=== PATIENT | female | born 1940 | race Caucasian/White ===

== ENCOUNTER 2017-04-21 14:30 | Inpatient (IN) | payer MEDICARE ==
[~2017-04-21] VITALS: Ht 157.5 cm; Wt 69.9 kg
--- NOTE | ~2017-04-21 | ECHO ---
Transthoracic Echocardiography Report (TTE) Demographics Patient Name GILDARDO, Date of Study 04/22/2017 [place] Patient Number [id number] Visit Number [id number] Date of 1940 Room Number G6229 Gender Female Number Age 76 year(s) Referring Carly Weller MD Tool Setter Ahsan Naranjo RDCS, Physician RVT Physician Interpreting Annie Fernández MD Supervisor [place] Physician Supervising Ordering Carly Weller MD, MD/MLP Physician Nurse [employer] Delivery Driver Conclusions Contractility Score Summary Normal Left Ventricular contractility was noted. Summary The estimated left ventricular ejection fraction is 60%. Mild tricuspid regurgitation by color Doppler. There is moderate pulmonary hypertension. The pulmonary pressure (RVSP) is 49.81 mmHg. Procedure Type of Study TTE procedure:2D Echocardiogram. Procedure Date Date: 04/22/2017 Start: 10:01 AM Study Location: Inpatient Portable Technical Quality: Adequate visualization Indications:CVA. Appropriate Use Criteria: 9 Patient Status: Routine Rhythm: Atrial fibrillation BP: 160/82 mmHg M-Mode/2D Measurements LV Diastolic Dimension: 3.93 cm LV Systolic Dimension: 1.49 cm LV Septum Diastolic: 0.86 cm LV PW Diastolic: 0.9 cm LA Dimension: 3.1 cm RV Diastolic Dimension: 2.8 cm LA volume: 68 ml LVOT: 1.6 cm RV Base: 2.92 cm LVOT VTI: 24.2 cm RV Mid: 2.23 cm LV Stroke volume: 48.63 ml TAPSE: 2.78 cm TDI-S': 12.6 cm/s Doppler Measurements AV Peak Velocity: 1.47 m/s MV Peak E-Wave: 1.34 m/s AV Peak Gradient: 8.64 mmHg AV Mean Gradient: 4 mmHg MV P1/2t: 59 msec LVOT Peak Velocity: 1.29 m/s TR Velocity:2.95 m/s PV Peak Velocity: 1 m/s TR Gradient:34.81 mmHg PV Peak Gradient: 4 mmHg Estimated RAP:15 mmHg Estimated PASP: 49.81 mmHg Estimated RVSP: 50 mmHg E' Septal Velocity: 0.07 m/s E' Lateral Velocity: 0.13 m/s Findings Left Ventricle The left ventricle is normal in size . Diastolic function indeterminate due to patient's arrhythmia. Right Ventricle Normal right ventricle structure and function. Left Atrium Normal left atrial size. Right Atrium Normal right atrial size. Dilated IVC with poor inspiratory collapse consistent with elevated RA pressure. Mitral Valve Trivial mitral regurgitation by color Doppler. Mild mitral annular calcification. Aortic Valve Normal aortic valve structure and function. Tricuspid Valve Mild-moderate tricuspid regurgitation by color Doppler. There is moderate pulmonary hypertension. The pulmonary pressure (RVSP) is 49.81 mmHg. Pulmonic Valve Normal pulmonic valve structure and function. Pericardial Effusion No evidence of pericardial effusion. Miscellaneous Visualized portions of the aortic root and ascending aorta appear normal in size. Pleural Effusion No evidence of pleural effusion. Contractility Score LV regional wall motion:(0-Non visualized 1-Normal 2-Hypokinesis 3-Akinesis 4-Dyskinesis 5-Aneurysm) Signature dtt: Pradeep Valencia (cardio) dtd: 04/22/17 1001 Physician Self Edit
--- NOTE | ~2017-04-21 | DS ---
PATIENT'S NAME: RAMYA EWING [facility] AGE: 76 Y [address] ROOM: [id number] [place], [place] [address] LOCATION: GICU ADMIT DATE: 04/21/2017 Discharge Summary DISCHARGE DATE: 05/02/2017 FAMILY PHYSICIAN: Mercedes Tijerina MD ATTENDING PHYSICIAN: Jose Alejandre PRINCIPAL DIAGNOSES: 1. 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 2. New onset atrial fibrillation with rapid ventricular response. 3. Expressive aphasia and muteness. 4. Urinary tract infection sepsis. 5. Acute kidney injury. COURSE: Please refer to admitting H and P for detailed history of initial presentation. This is a 76-year-old female who presented with an acute onset right-sided weakness and loss of speech and presented to the emergency room within the tPA window and was given tPA and subsequently admitted to the ICU for observation. Further workup indicated that she had what appears to be a left MCA territory stroke, most likely of cardioembolic origin. The patient post tPA had significant resolution of her right-sided weakness; however, she still continues to have significant aphasia and muteness. The patient during her hospital stay was also noted to be in atrial fibrillation with ongoing on and off rapid ventricular responses and this was new for her. The patient was seen by the Cardiology Service and medications were adjusted for rate and rhythm control. The patient is currently oral amiodarone and for the most part in sinus rhythm and had been able to stay in the sinus rhythm for the past 3 days consistently. The patient during her hospitalization also developed acute kidney injury, and Nephrology consultation was obtained and renal function at this point is stable, her baseline creatinine is around 1.4 and today it is 1.9, making good urine output. She will have a followup renal panel in 3 days. The patient also had complications with UTI during her hospitalization and was treated with broad-spectrum antibiotics and now is discharged to go on p.o. Levaquin to finish a total of 10 days course of antibiotics for this. The patient is to continue to have PT, OT, and Speech therapy for continuing of her rehabbing process. In addition, I have just started the patient on Coumadin 5 mg p.o. daily after consultation with Dr. Alejandre, Neurology, for atrial fibrillation and stroke prophylaxis, and she is day 11 outside her acute stroke. Plan is to slowly get her INR in range in the next 5-7 days. The patient is to follow up with Cardiology as well as the family physician in the next 1-2 weeks. PHYSICAL EXAMINATION: GENERAL: The patient today is awake, alert, and oriented x3, in no acute distress. CHEST: Clear to auscultation bilaterally. HEART: S1, S2. Regular rate and rhythm. PATIENT'S NAME: RAMYA EWING [facility] AGE: 76 Y [address] [id number] [address] LOCATION: [facility] ADMIT DATE: 04/21/2017 Discharge Summary DISCHARGE DATE: 05/02/2017 FAMILY PHYSICIAN: Mercedes Tijerina MD ATTENDING PHYSICIAN: Jose Alejandre ABDOMEN: Soft, nontender, nondistended. EXTREMITIES: Without edema. NEURO: 3/5 strength on the right upper extremity. Speech is muted. DISCHARGE MEDICATIONS: 1. Amiodarone 200 mg b.i.d. for 7 days and then 200 mg daily. 2. Norvasc 5 mg p.o. daily. 3. Coumadin 5 mg p.o. daily. 4. Simvastatin 40 mg p.o. daily. 5. Levofloxacin 150 mg q.48 hours x3 doses. DISPOSITION: To [facility] for inpatient rehab. Greater than 30 minutes were spent in discharge planning and facilitating. MD NIRMALA ANGEL/taina /[id number] d: 05/03/17 0248 t: 05/05/17 1520, DISCHARGE SUMMARY
--- NOTE | ~2017-04-21 | CON ---
PATIENT'S NAME: RAMYA EWING [facility] AGE: 76 Y [address] ROOM: [id number] [place], [place] [address] LOCATION: GICU ADMIT DATE: 04/21/2017 Consultation DISCHARGE DATE: FAMILY PHYSICIAN: PHYSICIAN, UNKNOWN ATTENDING PHYSICIAN: LUIS EDUARDO LAWSON REFERRING PHYSICIAN: Edvin Carroll MD HISTORY OF PRESENT ILLNESS: A 76-year-old female patient who arrived here from [facility] after having acute onset of sudden nauseousness at lunchtime with the family with her daughter and her at 12 noon. She arrived at the emergency room and received tPA promptly at around 2:30 p.m. The patient presented with sudden onset of right facial droop and complete muteness and global aphasia right from the very beginning. She also had severe hemiplegia, which has now improved to the point where she does have some hand manager department weakness, but otherwise can elevate her arms and her legs and maintain her arm upward. The patient has been transferred here for further workup. A CT of the brain was performed at [facility] in [place] did not show any evidence of any evolving stroke. Thus, the exact onset of the visualized stroke would not include any obvious evidence of CT findings for a stroke as it was too early. We are assuming right now that the patient likely had an acute left MCA territory stroke possibly involving the insular and the radiating portions backwards into the parietal region. The patient does have some neglect of her right side and also appears to have some visual neglect. She is noted to come in atrial fibrillation. There is no known history of atrial fibrillation in this patient PAST MEDICAL HISTORY: She does have a history of hypertension and her hypertension medications have been held. History of hyperthyroidism and hyperlipidemia. SOCIAL HISTORY: She is for 53 years. She has 2 children. One daughter is here presently. She does not smoke. She does not drink alcohol. She lives in a house with her . HOME MEDICATIONS: Include: 1. Daily vitamins. 2. Citracal plus D3. 3. Fish oil supplementation/omega-3. 4. Vitamin C supplement 1000 mg tablet daily. 5. Aspirin 81 mg p.o. daily. 6. Levothyroxine 75 mcg tablet p.o. daily. 7. Simvastatin 80 mg p.o. daily. 8. Vitamin D3 1000 units p.o. daily. PATIENT'S NAME: RAMYA EWING [facility] AGE: 76 Y [address] ROOM: [id number] [place], [place] [address] LOCATION: [facility] ADMIT DATE: 04/21/2017 Consultation DISCHARGE DATE: FAMILY PHYSICIAN: PHYSICIAN, UNKNOWN ATTENDING PHYSICIAN: LUIS EDUARDO LAWSON 9. Losartan 100 mg tablet p.o. daily. 10. Ginkgo biloba 120 mg Softgel p.o. daily. FAMILY HISTORY: Noncontributory here. REVIEW OF SYSTEMS: CONSTITUTIONAL: The patient presents today with an acute onset of right hemiplegia and global aphasia, which happened suddenly along with a right facial droop. She was nauseous after she had completed eating during lunchtime with the daughter and the . She essentially has not had any verbal output since that time. The patient promptly received tPA and was transferred here to our hospital for further evaluation. She had an initial CT scan that was negative and that is appropriate as the time of onset was very acute. The patient received tPA and there is possibility that there was some improvement in her right-sided weakness since the finish of the tPA at around 2:22 p.m. She has a new onset of atrial fibrillation. She has received boluses of normal saline to try to get up the blood pressure from its baseline presentation here of 120 mmHg. GI: Recent history of vomiting and nauseousness with the onset of her stroke, but no symptoms prior to that. NEUROLOGICAL: She does not have any headaches. She appears sitting upright and comfortable, does not follow commands. PHYSICAL EXAMINATION: GENERAL: The patient is sitting up in bed. She is alert to the persons in the room. NEUROLOGICAL: She only smiles on as an imitation. She does not follow commands to close her eyes or to move her upper extremity. She does keep her right arm elevated above the bed. She moves all 4 extremities and is using her right arm, which was weaker early. She scores a 17 on the NIH stroke scale associated with left yesenia-attention, complete global aphasia with muteness, some mild limb ataxia in the right upper extremity, mild right hand drift, right facial droop, a right hemineglect, and her inability to answer any questions on command. Cranial nerves: Facial droop is noted on the right, fairly dramatic loss of the nasolabial fold. Her neck is supple on flexion and extension. Her eyes are able to pass midline and look both ways. There is no forced eye deviation. The rest of the cranial nerve exam appears to be intact. There is slight drift of the right hand, but otherwise power appears to be near fall in the right upper and lower extremities. The left power is normal in the upper and lower extremities. There appears to be some right cortical neglect. This is very subtle. The patient is not ambulatory presently. IMPRESSION: PATIENT'S NAME: RAMYA EWING [facility] AGE: 76 Y [address] ROOM: [id number] [place], [place] [address] LOCATION: [facility] ADMIT DATE: 04/21/2017 Consultation DISCHARGE DATE: FAMILY PHYSICIAN: PHYSICIAN, UNKNOWN ATTENDING PHYSICIAN: LUIS EDUARDO LAWSON This is a severe stroke in Ms. Ewing who is a 76-year-old female patient with only history of hypertension, hyperlipidemia, and hypothyroidism. There is no known history of atrial fibrillation and the patient does present with atrial fibrillation at the emergency room. She had acute onset of nauseousness with vomiting at lunch and quickly became aphasic and right hemiparetic. She has had recovery of the right upper extremity and right lower extremity power though has started to come back prior to the tPA. We have not seen any improvement post tPA with her muteness. This is clearly a likely territorial stroke and probably due to cardioembolic stroke associated with atrial fibrillation. At this point in time, we will try to maximize the blood pressure if at all possible and bolus the patient at least 2 L of fluid. Her blood pressure is currently into the 120s range and may be low due to the patient having vomiting at the beginning and may be relatively intravascularly depleted. Today, Dr. Carroll and I discussed with the family the nature of this patient's stroke and we will do further stroke workup including getting an echocardiogram, checking an MRA of the brain, and evaluating for the evidence for this right MCA stroke, which largely we believe is due to a cardioembolic stroke. The patient's vitals are stable. I discussed with the family that in the setting of a large stroke, persons can seemingly be well, but can get worse over the course of 24-48 hours. We are hopeful that this will not be the case here because her presentation for aphasia is quite severe, we cannot make any predictions for ultimate recovery at this time. The case has been discussed with Dr. Carroll and the family has been kept abreast of all the plans. MD JT MASON/taina /[id number] d: 04/21/17 2343 t: 04/30/17 1738, CONSULTATION REPORT
--- NOTE | ~2017-04-21 | CON ---
PATIENT'S NAME: GILDARDO [facility] AGE: 76 Y [address] ROOM: [place] [address] LOCATION: GICU ADMIT DATE: 04/21/2017 Consultation DISCHARGE DATE: FAMILY PHYSICIAN: Mercedes Tijerina MD ATTENDING PHYSICIAN: LUIS EDUARDO ALEJANDRE DATE OF CONSULTATION: 04/22/2017 REFERRING PHYSICIAN: Edvin Carroll MD REASON FOR CONSULTATION: Atrial fibrillation. HISTORY OF PRESENT ILLNESS: This is a 76-year-old female, who was in her usual state of health when she experienced on 04/21/2017 right-sided weakness with loss of speech. She went to the [place] [facility]. Her CT scan showed a nonhemorrhagic CVA. She received tPA as she was within the timeline. Her initial EKG in [place] showed that she had atrial fibrillation with rapid ventricular response. She does not have a history of PAF. The CVA has left her aphasic with right-sided facial drooping and weakness of the right arm and leg. PAST MEDICAL HISTORY: 1. CVA on 04/21/2017, hard of hearing. 2. Hypertension. 3. History of pneumonia. 4. Osteoporosis. 5. Skin cancer removed from the forehead in 2016. PAST SURGICAL HISTORY: Carpal tunnel release. ALLERGIES: NONE TO MEDICATION. HOME MEDICATIONS: 1. Vitamin C 1000 mg daily. 2. Aspirin 81 mg daily. 3. Citracal plus D 2 tablets b.i.d. 4. Vitamin D 3000 units every day. 5. Ginkgo biloba 120 mg daily. 6. Levothyroxine 75 mcg daily. 7. Cozaar 100 mg daily. 8. Multivitamin. 9. Centrum Silver one tablet daily. 10. [place]-3 fish oil 2 capsules daily. PATIENT'S NAME: GILDARDO [facility] AGE: 76 Y [address] ROOM: [place] [address] LOCATION: [facility] ADMIT DATE: 04/21/2017 Consultation DISCHARGE DATE: FAMILY PHYSICIAN: Mercedes Tijerina MD ATTENDING PHYSICIAN: LUIS EDUARDO ALEJANDRE 11. Simvastatin 80 mg every bedtime. FAMILY HISTORY: She is . She has a very attentive daughter, who was at her bedside. Her mother of coronary aneurysm. SOCIAL HISTORY: She has a history of smoking cigarettes one pack of cigarettes a day for 20 years. She has stopped smoking several years ago. REVIEW OF SYSTEMS: Unable to obtain verbally, although HEAD: She shakes her head no to headache. EYES: No blurred vision. EARS: No hearing loss. NOSE: No problems with epistaxis or rhinorrhea. MOUTH: She has not had any food. It is difficult to note she is able to swallow. PULMONARY: There has been no report of cough. GI: Negative for nausea, vomiting, or diarrhea. No melena or hematochezia. : No problems with urinary frequency or urgency or dribbling. MUSCULOSKELETAL: She does have problems with osteoporosis. PHYSICAL EXAMINATION: GENERAL: She is alert, has right-sided facial drooping. NECK: Soft and supple. No carotid bruits were noted. LUNGS: Lung sounds are clear. CV: Irregular showing atrial fibrillation. Rate is under control. ABDOMEN: Soft. Bowel sounds are present. EXTREMITIES: Showed no peripheral edema. No clubbing. No cyanosis. NEUROLOGIC: Her right side is weaker than her left on exam. LABORATORY DATA: EKG is showing atrial fibrillation. Her 12-lead EKG did not show any ST or T- wave changes. White count was 8.9, hemoglobin 12.3, hematocrit 37.3, platelets 175. BUN was 14, creatinine 1.1, potassium 4.2, sodium 143. Magnesium was 2. Hemoglobin A1c 5.7. Cholesterol was 157, triglycerides 136, HDL 79, LDL was 51. ASSESSMENT: 1. New onset atrial fibrillation. Duration is unknown. We will recommend checking an echocardiogram as well as a TSH and rate control. We would recommend long-term anticoagulation when it is okay with Neurology. 2. Hypertension. Blood pressure is under good control. She is to continue PATIENT'S NAME: RAMYA EWING [facility] AGE: 76 Y [address] ROOM: [place] [address] LOCATION: [facility] ADMIT DATE: 04/21/2017 Consultation DISCHARGE DATE: FAMILY PHYSICIAN: Mercedes Tijerina MD ATTENDING PHYSICIAN: LUIS EDUARDO ALEJANDRE with her current medications. 3. Dyslipidemia. Her most recent fasting lipid profile shows good control. The history of present illness, physical exam, and assessment and plan are per Dr. Valencia. We would like to thank Dr. Alejandre for allowing us to participate in the patient's care. KATIE JOEL APRN FOR MD ANAYA HOLLOWAY/mikaylal /[id number] d: 04/24/172018 t: 05/07/17 1650, CONSULTATION REPORT
--- NOTE | ~2017-04-21 | HP ---
PATIENT'S NAME: GILDARDO [facility] AGE: 76 Y [address] ROOM: [place] [address] LOCATION: [facility] ADMIT DATE: 04/21/2017 History & Physical DISCHARGE DATE: FAMILY PHYSICIAN: PHYSICIAN, UNKNOWN ATTENDING PHYSICIAN: LUIS EDUARDO ALEJANDRE DATE OF SERVICE: CHIEF COMPLAINT: Right-sided upper and lower extremity weakness and right-sided facial droop and unable to speak. HISTORY OF PRESENT ILLNESS: This is a 76-year-old female, who according to the patient's daughter and at the bedside state she is healthy. The story started today after lunch at home. Around 12:30 p.m., the daughter noticed that her mother could not speak all of a sudden and also had a right-sided facial droop and also weakness in the right arm and the right leg. This happened around 12:30 p.m. The patient was brought to the outside facility in [place] for evaluation. Over there, the patient had a CT of the head without contrast which ruled out any bleeding. Due to the presentation concerning for stroke and within tPA period, our neurologist was consulted by [place] ER physician, and the decision was made to give tPA after consulting with our neurologist. TPA was given. I was told by the ER physician over there in [place] tPA was given at 1:42 p.m. on April 21, 2017. Shortly after tPA was given, monitor also showed new-onset atrial fibrillation. EKG they did over there on admission at 1:07 p.m. showed atrial fibrillation with RVR, heart rate of 110, QRS of 86. The patient was sent over here for further care after tPA. REVIEW OF SYSTEMS: As mentioned in the history of present illness. All other systems were reviewed and were negative, except those mentioned in the history of present illness. PAST MEDICAL HISTORY: According to the family member, the patient is healthy. However, her home medication has to be addressed to get more information about her past medical history. ALLERGIES: NO KNOWN DRUG ALLERGIES ACCORDING TO THE PATIENT'S DAUGHTER AND THE PATIENT'S AT THE BEDSIDE. HOME MEDICATIONS: PATIENT'S NAME: GILDARDO [facility] AGE: 76 Y [address] ROOM: [place] [address] LOCATION: [facility] ADMIT DATE: 04/21/2017 History & Physical DISCHARGE DATE: FAMILY PHYSICIAN: PHYSICIAN, UNKNOWN ATTENDING PHYSICIAN: LUIS EDUARDO ALEJANDRE To be reconciled with the patient's pharmacy before it can be addressed. SOCIAL HISTORY: The patient was a former cigarette smoker about unknown quantity and for unknown years, but she quit about 20 years ago according to the patient's daughter at the bedside. She was never an alcohol drinker and never an illegal drug user. PAST SURGICAL HISTORY: None according to the patient's daughter at the bedside. FAMILY HISTORY: Father from complication from coronary aneurysm at old age. Mother from old age from unknown cause. PHYSICAL EXAMINATION: VITAL SIGNS: At the time of my dictation, blood pressure is currently at 105/78, heart rate is in the 95, saturation around 97% on room air, and respiration 16. GENERAL APPEARANCE: Alert, but cannot assess orientation given that the patient is aphasic. The patient does follow some commands, but not every command. The patient has difficulty comprehending due to her stroke. Not in acute distress. HEENT: Pupils are equally round and reactive to light. Extraocular muscles are intact. Anicteric sclerae. Nasal turbinates are normal bilaterally. Moist oral mucosa. NECK: No JVD. CARDIOVASCULAR: Irregularly irregular rate and rhythm. No murmur, no rubs, no gallops. Normal S1, S2. RESPIRATORY: Clear to auscultation. No rales. No rhonchi. No wheezing. No crackles. ABDOMEN: Soft, nontender, and nondistended. Bowel sounds present. No mass. EXTREMITIES: No edema in the upper or lower extremities. SKIN: No ulcer, no rash, no cyanosis. NEUROLOGIC: The patient cannot really follow all the commands. Given her stroke, the patient has difficulty comprehending. She is aphasic, cannot say any vocabulary at all. The patient is alert, but cannot assess orientation due to confusion from stroke and also from aphasia. The patient's muscle weakness is about 4/5 in the right upper and right lower extremity and about 5/5 in the left upper and left lower extremity. Sensation cannot be assessed given that the patient does not speak due to aphasia. Babinski positive on the right foot. She has hyperreflexia about +3 in the right knee. Otherwise, unremarkable. Cannot assess the vibration or proprioception given that the patient does not follow commands. Cannot assess gait due to fall risk at the moment. Cranial nerves 2 through 12, cannot make a full assessment given that PATIENT'S NAME: RAMYA EWING [facility] AGE: 76 Y [address] ROOM: [id number] [place], [place] [address] LOCATION: [facility] ADMIT DATE: 04/21/2017 History & Physical DISCHARGE DATE: FAMILY PHYSICIAN: PHYSICIAN, UNKNOWN ATTENDING PHYSICIAN: LUIS EDUARDO ALEJANDRE the patient does not follow all the commands. There is obvious facial droop on the right side of the face when she tried to open her mouth. SKIN: No ulcer, no rash, no cyanosis. LABORATORY DATA: Blood work from the outside facility: Urine drug screen was negative. INR less than 1. PTT of 23.8. UA negative for UTI. Sodium 139, potassium 4.1, chloride 108, CO2 of 23, BUN 22, glucose 144, creatinine 1.4, calcium 9.0, anion gap 12, GFR 37, proBNP 426. White blood cells 7.3, hemoglobin 13.1, hematocrit 38.2, and platelet 184. IMAGING STUDIES: EKG over there in [place] at 1:07 p.m. showed atrial fibrillation with RVR, heart rate 110, QRS 86. CT of the brain without contrast: Report is pending. But based on the verbal report given to me by the outside facility, it was negative without any hemorrhage. I have requested the report to be faxed here. ASSESSMENT AND PLAN: 1. Regarding her acute ischemic stroke: Probably cardioembolic in the setting of new-onset atrial fibrillation. The plan is ICU for post-tPA care. Blood pressure should be around 160, but no more than 180. If more than 180, should give IV labetalol per the stroke orders. We will get MRI of the brain and MRA of the brain and neck tomorrow, 24 hours after the tPA was given. If the patient has any acute change in mental status, she will get a CT of the brain without contrast stat to rule out any intracranial hemorrhage. Continue IV fluids to keep her on the ideal blood pressure range. Oxygen nasal cannula if necessary. We will watch closely to not cause volume overload. No blood work within the next 24 hours after tPA. We will check a blood work tomorrow after 24 hours to make sure kidney function is okay before going for MRI and MRA imaging of the brain and neck. I will check A1c and also a lipid panel. Check echo in the morning. We will put a Cardiology consult for management of the atrial fibrillation and long-term anticoagulation in the future. PT, OT. Speech evaluation. Fall precaution. N.p.o. for now. Further plan depends on the clinical course. I will consult Neurology. I already spoke to Dr. Alejandre, who also already saw the patient here in the ICU, PATIENT'S NAME: GILDARDO [facility] AGE: 76 Y [address] ROOM: [place] [address] LOCATION: [facility] ADMIT DATE: 04/21/2017 History & Physical DISCHARGE DATE: FAMILY PHYSICIAN: PHYSICIAN, UNKNOWN ATTENDING PHYSICIAN: LUIS EDUARDO ALEJANDRE and this is the plan I formulated with him. 2. Regarding her new-onset atrial fibrillation with rapid ventricular response: I will give her IV Lopressor p.r.n. for atrial fibrillation with rapid ventricular response control. The patient cannot swallow right now, therefore, nothing p.o. for now. Echo in the morning. Cardiology consult. Of course, right now, it is not the time for anticoagulation, but she obviously will require anticoagulation in the future to prevent future stroke. Further plan will depend on clinical course. 3. Regarding her deep vein thrombosis prophylaxis: The patient will be on compression devices. 4. Regarding her code status: After speaking to the family member about the code status, the patient does not have any power of director of medical education or legal guardian or the healthcare proxy. The patient, however, did express to her when she was able to talk before that she would not want anything aggressive to be done. She told her before all this happened that she would want anything aggressive which means that no intubation and no chest compression. Therefore, now she will be DNR/DNI, and I have already confirmed this with the patient and the patient's daughter and patient's in person here in the ICU. 5. Further plan will depend on the clinical course. Time spent in care on the day of admission 50 minutes, where 30 minutes was spent with the family member with counseling about code status and also with the plan of care and also addressing all their questions and concerns to their satisfaction. The rest of the time was spent on chart review, interviewing, and also on physial examination. Further plan will depend on clinical course. MD AMANDA FISCHER/taina /[id number] D: [id number] T: [id number] HISTORY & PHYSICAL
--- NOTE | ~2017-04-21 | CON ---
PATIENT'S NAME: GILDARDO [facility] AGE: 76 Y [address] ROOM: [place] [address] LOCATION: [facility] ADMIT DATE: 04/21/2017 Consultation DISCHARGE DATE: FAMILY PHYSICIAN: Mercedes Tijerina MD ATTENDING PHYSICIAN: LUIS EDUARDO LAWSON REFERRING PHYSICIAN: Edvin Carroll MD Consult for Dr. Carroll. HISTORY OF PRESENT ILLNESS: This 76-year-old lady, referred for rehab evaluation, was admitted on 04/21 with sudden onset of aphasia, apraxia, right facial droop, and eventually right upper and lower extremity weakness. She did receive tPA in [place] and was referred here for definitive management. She is at the present time with expressive aphasia and apraxia, especially with mouth and tongue. She is also neglecting the right temporal visual field. At the present time, she is apraxic and with expressive aphasia. Mostly she is understanding, she nods, and she can make dense eye contact; however, she is neglecting right visual field and right side of the body to right upper and lower extremity. She is unable to move right upper and lower extremity at the present time. She is showing very slight facial droop on the right side. Deep tendon reflexes are slightly brisk on the right side in comparison to the left. PHYSICAL EXAMINATION: VITAL SIGNS: Blood pressure 142/81, temperature 98.2, pulse 74, respiratory rate 20. She is 5 feet 2 inches and weighs 68.6 kg. NEUROLOGIC: No volitional movement is seen in the right upper and lower extremity at the present time. MEDICATIONS: She is on the following medications: 1. Aspirin. 2. Simvastatin. 3. Synthroid. 4. Tylenol. 5. Zofran. 6. NaCl 0.9%. 7. Lopressor. 8. Lipitor. PATIENT'S NAME: GILDARDO [facility] AGE: 76 Y [address] ROOM: [place] [address] LOCATION: [facility] ADMIT DATE: 04/21/2017 Consultation DISCHARGE DATE: FAMILY PHYSICIAN: Mercedes Tijerina MD ATTENDING PHYSICIAN: LUIS EDUARDO LAWSON 9. Wilmar-Synephrine. ASSESSMENT AND PLAN: At the present time, we will start her on PT, OT, and Speech. Please see the orders. We will brace her as necessary, and we will keep her n.p.o. until we see the results of speech evaluation. We will start her also on E-stimulation on specific muscles, please see the orders. We might go ahead and do a modified barium swallow to see how well she is swallowing and if she is safe, we will advise. All the above was explained to her and when she is stable, I am happy to take her for intensive rehabilitation for about 2 to 3 weeks aiming to discharge her home at [facility] with recommendation. I discussed all this with her and her daughter. They verbalized understanding and agreement. MD JOHN WOODSON/modl /[id number] d: 04/22/172199 t: 04/23/17 1630, CONSULTATION REPORT
--- NOTE | ~2017-04-21 | CON ---
PATIENT'S NAME: RAMYA EWING [facility] AGE: 76 Y [address] ROOM: [id number] [place], [place] [address] LOCATION: GICU ADMIT DATE: 04/21/2017 Consultation DISCHARGE DATE: FAMILY PHYSICIAN: Mercedes Tijerina MD ATTENDING PHYSICIAN: LUIS EDUARDO ALEJANDRE DATE OF CONSULTATION: 04/26/2017 REFERRING PHYSICIAN: Edvin Carroll MD This is a [facility] Nephrology Consultation. REASON FOR CONSULTATION: Acute kidney injury on chronic kidney disease stage 3. HISTORY OF PRESENT ILLNESS: This is the 76-year-old female patient who was admitted for an acute CVA after having an otherwise benign past medical history. The patient began having an acute onset of aphasia as well as right-sided facial droop with right upper extremity and lower extremity weakness. The patient was brought to [facility] for higher level of care after being transferred from [facility]. While in [place], the patient did have a CT of her head without contrast that ruled out any bleeding. It was concerning for presence of CVA. The patient was given tPA within appropriate period and Dr. Alejandre was consulted. The patient did have a new onset of atrial fibrillation noted with rapid ventricular response during her assessments in [place]. Heart rate was quite tachycardic as well as hypertensive for her blood pressures. The patient's creatinine was 1.1 on admission and today creatinine is elevated to 1.7. The patient's urine outputs have decreased significantly over the past 24 hours from over 2.5 L to current 350 mL. Bladder scan was performed, showing no urine in the bladder. Therefore, due to the patient's history of BANG with recent decrease in urinary outputs, Nephrology has been asked to consult and manage her acute kidney injury while she is hospitalized. I do note that the patient has been taking losartan as an outpatient, otherwise noting no nephrotoxic agents on her home medication list. At the time of exam, the patient is alert and oriented, however, aphasic. She is in no acute distress. Her family is at her bedside. PAST MEDICAL HISTORY: As listed above includin. Acute CVA on 04/21/2017. 2. Hard of hearing. 3. Hypertension. 4. History of pneumonia. 5. Osteoporosis. 6. Skin cancer removal in 2016. PAST SURGICAL HISTORY: Carpal tunnel release. ALLERGIES: NONE TO MEDICATION. PATIENT'S NAME: RAMYA EWING [facility] AGE: 76 Y [address] ROOM: [id number] [place], [place] [address] LOCATION: [facility] ADMIT DATE: 04/21/2017 Consultation DISCHARGE DATE: FAMILY PHYSICIAN: Mercedes Tijerina MD ATTENDING PHYSICIAN: LUIS EDUARDO ALEJANDRE CURRENT HOME MEDICATIONS: Include: 1. Vitamin C 1000 mg daily. 2. Aspirin 81 mg daily. 3. Citracal plus D 2 tablets daily. Vitamin D3 1000 units daily. 4. Ginkgo biloba 120 mg daily. 5. Levothyroxine 75 mcg daily. 6. Cozaar 100 mg daily. 7. Multivitamin 1 tablet daily. 8. Centrum Silver 1 tablet daily. 9. [place]-3 fish oil two tablets daily. 10. Simvastatin 80 mg daily at bedtime. ALLERGIES: NONE TO MEDICATION. FAMILY HISTORY: Reviewed and is noncontributory. The patient does not have a history of kidney disease or dialysis. There is significant history of coronary aneurysm in her mother who suddenly. SOCIAL HISTORY: The patient does have a remote history of smoking. She used to smoke approximately 1 pack a day for the last 20 years. She has not smoked for several years. The family denies any illicit drug use or alcohol use. REVIEW OF SYSTEMS: Essentially unable to obtain a full review of systems due to the patient's current inability to verbalize. The patient currently shakes her head yes and no and denies any other complaints. PHYSICAL EXAMINATION: VITAL SIGNS: Blood pressure is 188/79, pulse is 138, sats are 95% on room air, temp is 99.0, respirations 18. GENERAL: On exam, this is an alert, elderly female who appears her approximate stated age. She is in no acute distress. HEENT: Her head is normocephalic and atraumatic. Eyes: Pupils are equal, round, and reactive to light and accommodation. Nose is midline. Mouth, no gingival bleeding. Dentition is in good repair. Mucous membranes are moist. NECK: Soft and supple. LUNG: Sounds are diminished in the bases bilaterally. No wheezing or crackles noted. CARDIOVASCULAR: Irregularly irregular rate and rhythm. Unable to appreciate any murmurs, rubs, or thrills. ABDOMEN: Soft, nontender, however, mildly distended. EXTREMITIES: Show trace to 1+ upper and lower extremity bilaterally in the hands and feet. No pretibial edema noted. NEUROLOGICAL: Her right side is noted to be weaker than her left side on exam.PATIENT'S NAME: RAMYA EWING [facility] AGE: 76 Y [address] ROOM: [place] [address] LOCATION: [facility] ADMIT DATE: 04/21/2017 Consultation DISCHARGE DATE: FAMILY PHYSICIAN: Mercedes Tijerina MD ATTENDING PHYSICIAN: LUIS EDUARDO ALEJANDRE LABORATORY DATA: Shows EKG in atrial fibrillation with rapid ventricular response. There are no ST-T wave abnormalities noted. WBC is 8.9, hemoglobin 12.3, hematocrit 37.3, platelets 175. Glucose 110, BUN 25, creatinine 1.7, sodium 140, potassium 3.6, chloride 113, CO2 is 28, calcium 8.0, albumin 2.7, phosphorus 1.8. Mag is 2.2. Urinalysis has positive nitrite, protein, ketones, and blood. Blood cultures are currently pending, and urine culture is currently pending. An echocardiogram does show ejection fraction is 60% with moderate pulmonary hypertension noted with pulmonary pressure of 49.81 mmHg. Chest x-ray is reviewed showin. Improvement in radiographic appearance with partial clearing in the lungs. 2. Infrahilar and bibasilar hazy opacity, which could reflect atelectasis, edema, or infiltrate. CT abdomen and pelvis without contrast shows: 1. No free air with no findings of bowel obstruction. 2. Scattered colon diverticula predominantly at the descending and sigmoid portions of the colon. 3. Bilateral pleural fluid collections with adjacent lung consolidation. 4. Vascular calcifications. 5. Streaky increased attenuation in the perinephric fat adjacent to the right and left kidney, appearance is nonspecific. This finding can be associated with renal infection. 6. Small volume of free fluid in the patient's pelvis. MRA of the brain with and without contrast shows: 1. Large acute left MCA distribution infarct with mild localized edema and mass effect. There is no associated hemorrhage identified. 2. Mild periventricular small vessel ischemic changes. 3. 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 ASSESSMENT AND PLAN: 1. Acute kidney injury on chronic kidney disease stage 3 to 4. The patient's baseline creatinine is 1.1. Today her creatinine is elevated to 1.7. This is likely prerenal etiology secondary to hemodynamic instability with her atrial fibrillation with rapid ventricular response. The patient also has reported a decrease in oral intake over the past few days. She does appear to be hypervolemic on assessment. We will initiate 40 mg of IV Lasix x1 at this time. We will monitor urine outputs very closely. We will place a Barnes catheter and have her be on strict intake and output as well as daily weight. Renal ultrasound will be obtained to rule out any obstruction that could be attributing to her acute kidney injury. 2. Pulmonary hypertension likely secondary to right-sided heart failure with new onset atrial fibrillation with rapid ventricular response per Cardiology. We will continue to diurese p.r.n. 3. Acute cerebrovascular accident. The patient continues to be aphasic. Further recommendations per Dr. Alejandre at this time. PATIENT'S NAME: RAMYA EWING [facility] AGE: 76 Y [address] ROOM: [place] [address] LOCATION: [facility] ADMIT DATE: 04/21/2017 Consultation DISCHARGE DATE: FAMILY PHYSICIAN: Mercedes Tijerina MD ATTENDING PHYSICIAN: LUIS EDUARDO ALEJANDRE 4. Atrial fibrillation with rapid ventricular response. The patient is currently on amiodarone as well as Cardizem drip for rapid heart rates as well as hypertension. We will monitor closely. We would like to optimize the patient's heart rate and blood pressure to minimize the progression of acute kidney injury. Maintain hemodynamic stability. This patient has been seen and assessed by Dr. Dobbs. Her care has been conducted in consultation with Dr. Dobbs as well as me. We will continue with her current plan of care and also avoid any nephrotoxins in the interim. Losartan has been placed on hold at the time of exam. JOSE ALFREDO ANTONIO DNP, APRN ENS/modl /[id number] d: 04/28/17 1203 t: 05/09/17 1715, CONSULTATION REPORT
--- NOTE | 2017-04-21 17:05 | NUR ---
Admit to ICU from [place] ER post-TPA. GI ER administered TPA at 1342. Upon arrival, patient is mute, R)facial droop, some R)sided weakness. Presents in Afib, rates 90-130s. SBP 100-120s. On 2L N/C, lungs clear throughout. No mendenhall, bowel sounds active. PIV x2. Family at bedside
--- NOTE | 2017-04-22 04:28 | NUR ---
Significant Event: Patient alert, mute. NIHSS= 13. Patient able to follow some commands. Wilmar at 0.9 mcg/kg/hr to keep SBP 160-180. Remains on 2L oxygen. Incontient of urine at times. Family at bedside. Follow up: MRI today.
[2017-04-22] MEDS ORDERED: CENTRUM SILVER1 EAC1 PO (09:16)
[2017-04-22] MEDS ORDERED: GINKGO BILOBA120 M1 PO (09:16)
[2017-04-22] MEDS ORDERED: CITRACAL + D M1 EACH PO (09:17)
[2017-04-22] MEDS ORDERED: FISH OIL OMEGA1 EAC1 PO (09:17)
[2017-04-22] MEDS ORDERED: ASPIRIN LO-DOSE81 MG PO (09:18)
[2017-04-22] MEDS ORDERED: LEVOTHROID(SYN75 MCG PO (09:18)
[2017-04-22] MEDS ORDERED: VITAMIN C1000 MG PO (09:18)
[2017-04-22] MEDS ORDERED: VITAMIN D1000 UNIT PO (09:19)
[2017-04-22] MEDS ORDERED: COZAAR100 MG PO (09:19)
[2017-04-22] MEDS ORDERED: ZOCOR80 MG PO (09:19)
--- NOTE | 2017-04-22 10:09 | NUR ---
NUTRITION CONSULT RECEIVED PER STROKE PROTOCOL. WILL ATTEMPT TO COMPLETE DIET EDUCATION WHEN APPROPRIATE PRIOR TO DISCHARGE.
[2017-04-22 15:16] LABS: INR - (THERAPEUTIC) 1.03 (0.92-1.07); PROTIME 10.8 SECONDS (9.8-11.4); PTT 25 SECONDS (25-32)
[2017-04-22 15:24] LABS: ALBUMIN 3.1 gm/dL (3.5-5.0); ANION GAP 10.2 (10.0-19.0); CREATININE 1.1 mg/dL (0.5-1.1); POTASSIUM 4.2 mMol/L (3.7-5.1); TOTAL BILIRUBIN 0.4 mg/dL (0.0-1.5); TOTAL PROTEIN 6.4 g/dL (6.0-8.4)
--- NOTE | 2017-04-22 15:43 | NUR ---
Significant Events: Patient continues to be mute, NIHSS 13, R)sided facial droop and slight R) sided weakness. Up to chair with 2 assist this afternoon. Eval completed by ST, PT, OT. Plans for modified barium swallow in AM. Currently down for MRI/MRA. Family at bedside, Care management spoke with them regarding rehab options.
[2017-04-22 15:48] LABS: BASOPHIL # 0.1 K/uL (0.0-0.2); BASOPHIL % 0.6 %; EOSINOPHIL # 0.1 K/uL (0.0-0.5); HEMATOCRIT 37.3 % (33.0-46.0); HEMOGLOBIN 12.3 g/dL (10.0-15.0); IMMATURE GRANULOCYTE % 0.2 %; LYMPHOCYTE # 2.3 K/uL (0.8-4.0); LYMPHOCYTE % 25.8 %; MCH 28.9 pg (27.0-34.0); MCV 87.8 fl (83.0-98.0); MONOCYTE # 0.5 K/uL (0.0-1.0); MONOCYTE % 5.8 %; MPV 11.8 fl (9.4-12.4); NEUTROPHIL % 66.6 %; NRBC % 0 /100WBC (0-0.00); PLATELET COUNT 175 K/uL (150-450); RBC 4.25 M/uL (3.50-5.50); RDW-CV 13.4 % (11.9-14.6); WBC 8.9 K/uL (4.0-11.0)
--- NOTE | 2017-04-22 17:06 | NUR ---
Introduced self and role of care management to patient, her and daughter early afternoon. Patient is aphasic and does not attempt to participate in conversation. Patient lives in [place] with her spouse. Dr. Prescott just came to see them. says he has inpt rehab after back surgery at few years ago in [place]. They want her to have inpt. rehab. Talked to them about options for inpatient rehab, [facility], [facility], [facility] and [facility] are options in the area where they live. They want to talk about the options and will let me know there choices. Talked with OT staff his afternoon about how she did with therapy and she strongly recommends [facility] for their cognitive therapy. Gathered information on the inpt. rehabs and gave to daughter and . Daughter is interested in [facility], but prefers [facility]. Told them staff from [facility] will be here to meet with other patients and asked if they would want to talk with them. Daughter says she would. She says they will discuss the options more and review the material. Will follow.
--- NOTE | 2017-04-22 18:53 | NUR ---
Significant Event: restarted Wilmar to keep SBP 170-200 after family expressed concerns that pt's status has declined over the afternoon, which may have correlated with the Wilmar being stopped around 1200. Pt ambulated SBA with gaitbelt to bathroom. Alarms on at all times.
--- NOTE | 2017-04-23 03:53 | NUR ---
Significant Event: The patient is Alert, nonverbal. Nods but not always appropriately. NIHSS 14. Moves all extremities spontaneously and at times to command. Up with SBA, gaitbelt. Right droop and R) extremities are slightly weaker than her left. VSS, SBP goal is between 170-200, the patient is on a Gutierrez gtt at 1mcg/kg/min. Pupils are equal and reactive. No S/S of pain. PIV to her Right Wrist infusing NS at 150ml/hr and the Gutierrez gtt. PIV to the Left Forearm saline locked. NPO, will have a MBS today. May have Ice chips post oral cares. On 1L oxygen per [place]. Bradycardic 40-50's MD aware. Follow up: Vitals-GUTIERREZ gtt. MBS today
--- NOTE | 2017-04-23 11:41 | NUR ---
Significant Event:Patient is alert, mute. Nods yes to most questions, not appropriately. Follows commands when demonstrated. Does not follow verbal commands. Moves extremities spontaneously. Equal strength noted throughout. PERRLA. Unable to identify sensation to extremities. NIH-SS 12 this shift. Lungs clear and diminished in the bases. VSS on room air. Bradycardia on telemetry. TSH level drawn this am and was low, Dr. Fernández notified and a Free T4 was ordered. Bowel sounds active, no bm this shift. Patient voids per the bathroom with 1 assist and gaitbelt. Right arm edema from an IV infiltration. Bilateral calf pumps in place. Right foot drop boot in place. No s/s of pain. Patient takes medications 1 at a time with applesauce or pudding. Modified Barium Swallow study this shift. Honey thickened liquids, mechanical soft diet. Upright 90 degrees for all meals. Peripheral IV to the left hand has Normal Saline infusing at 150ml/hr, Neosynephrine infusing at 1mcg/kg/min titrate to keep SBP >170. Follow up:
--- NOTE | 2017-04-23 16:55 | NUR ---
Significant Event: Patient is alert but I am unable to assess orientation due to patient being severely aphagic and non-verbal. Follows most commands and I am repetative with my request. Nods yes to almost all questions so I am unable to assess numbness & tingling. Weakness on the R) side. R) side facial droop and vision issues. Pupils 3.0 & brisk. NIHSS = 12. Is on a Neosynephrine gtt and it is running at 0.939 mcg/kg/min. Need to keep SBP between 170-200. HR 40-50's. IV to L) hand infusing. MBS today and is on a mechanical soft diet with nectar liquids; pills whole in applesauce or pudding. Can be impulsive at times when she needs to go to the bathroom. Up with 1 assist and gait belt. Cooperative with cares. Follow up: Monitor VS & neuro.
--- NOTE | 2017-04-23 17:33 | NUR ---
Talked to patient's and daughter around noon. still prefers [facility] in[facility] rehab and daughter wants [facility]. Told them Merna is here seeing a couple of ICU patients and will stop by and talk to them. Call late afternoon from Merna at [facility] and they would be interested in patient if family choose them. Call back from Kaylie at [facility] inpatient rehab and they now have beds as had several dismissals this week. They would be willing to assess patient. She says Dr. Alfonso is on vacation this week, so have a [facility] lamp cleaner. Will fax information today and update family tomorrow. Will follow.
--- NOTE | 2017-04-24 04:56 | NUR ---
Significant Event: Pt is alert. She is nonverbal. Does not nod head appropriately. PERRLA. Some R) side visiual neglect. R) arm slightly weaker. NIHSS 12. Up 1 Assist GB. Impulsive when needs to use the restroom. On brenda gtt goal is to keep SBP between 170-200. HR runs amanda to call MD if HR continues less than 30. Honey thick liquids with mechanical soft diet head needs to be at 90 degrees for all meals. IV to L) and running the brenda and NS at 150ml/hr. Takes pills 1 at a time in applesauce. Follow up:
--- NOTE | 2017-04-24 11:47 | NUR ---
Significant Event:Patient is alert. Mute. PERRLA. NIH-SS 12. Unable to assess orientation and sensation. Does nod head yes not always appropriately. Moves extremities spontaneously. Does not always follow verbal commands, is able to follow model commands. Lungs clear, dry non productive cough. Hypertensive per MD order to keep SBP 170-200, visited with Dr. Alejandre and the plan is to keep the SBP between 17-200 for another day at least. All other VSS on room air -2L, does wear 2L when sleeping oxygen saturations decrease to 87% on room air while asleep. Sinus Bradycardia on telemetry. Bowel sounds hypoactive. Upper extremities edematous from prior IV infiltrations. Elevated this shift. Bilateral calf pumps in place. No s/s of pain. Patient takes medications 1 at a time in pudding without difficulty. Peripheral IV to the right forearm has Neosynephrine infusing at 0.7mcg/kg/min to keep goal blood pressure. Normal Saline infusing at 150ml/hr. Honey thickened liquids, mechanical soft diet. Upright 90 degrees for all meals. Follow up:Monitor blood pressure, PICC Line placement.
--- NOTE | 2017-04-24 11:47 | NUR ---
A - INTERDISCIPLINARY REFERRAL STROKE. NON-VERBAL, DOES NOT NOD APPROPRIATELY PER SHIFT REPORT. NOT APPROPRIATE FOR DIET EDUCATION AT THIS TIME. HT: 157.48 CM, WT: 155#, BMI: 28.2, IBW: 50 KG, %IBW: 141% LABS: ALB 3.1 MEDS: ZOCOR, ZOFRAN DIET: MECHANICAL SOFT/HONEY THICK. INTAKE BITES X2 MEALS. EST NEEDS: 9889-3389 KCAL (25-30 KCAL/KG IBW), 50-60 GRAMS PROTEIN (1-1.2 GRAMS/KG IBW), FLUID NEEDS: 1ML/KCAL D - INADEQUATE ORAL INTAKE RELATED TO DECREASED APPETITE EVIDENCED BY PO BITES X2 MEALS. I - WILL TRIAL HONEY THICK CIB 1X/DAY; MAGIC CUP BID. M/E - GOAL: PT WILL BE ABLE TO TOLERATE >50% OF MEALS AND AT LEAST ONE ORAL SUPPLEMENT PER DAY IN 4-6 DAYS. PLAN: WILL ATTEMPT TO PROVIDE DIET EDUCATION WHEN APPROPRIATE PRIOR TO DISCHARGE.
--- NOTE | 2017-04-24 12:45 | NUR ---
Received call from Katy at [facility]. She says they would be able to accept patient but is not sure when. She says they have a locum covering and they will be leaving Friday and another coming but is not sure what coverage will be like for the holiday weekend. She wants family to be aware they may have several different providers covering. Received call from Pino Cross APRN and he thinks family is leaning towards [facility] if able to accept him. Pino anticipates patient would be ready for transfer on Friday. Called Merna at [facility] to discuss if they will accept, have rooms and if taking admissions on Friday. She says the will have to discuss with their flatbed press operator when they will have a room, but they would accept her if that is family's decision and will be taking admissions on Friday. She says to touchbase with her tomorrow. Talked to patient's and daughter regarding above conversations with Katy Pringle at [facility] and Merna at [facility]. initially says they have not made a decision and won't make a decision until their son, Ignacio arrives this weekend. Daughter says they have talked to Ignacio on the phone about the options and he is OK with [facility]. does say he is not sure [facility] is an option if she won't consistently have one main provider. then says the real option he wants is to be able to take her home. Told him I understand that and it is everyones' goal to get her home, but it is to her benefit to have inpt. rehab first. He is tearful and says he knows that. Told them we can talk more tomorrow once I know when [facility] will have a bed. Will follow.
--- NOTE | 2017-04-24 19:11 | NUR ---
Significant Event: I took over cares from Susanne, RN @ 1200. Patient is alert but I am unable to assess orientation due to patient being non-verbal. Follows some commands but you have to be repeatitive in asking her to do things before she understands. She will nod her head yes & no but I don not think that she fully understands. Pupils equal & brisk. R) side weakness & R) side facial droop. No R) side perphiral vision. Unable to assess numbness & tingling. NIHSS = 12. She is on a Wilmar gtt to keep SBP 170-200 & it is now running at 0.7 mcg/kg/min. This afternoon patient went into A-fib and Cardizem gtt was started, per protocol, around 1830. PICC line placed today in R) arm. New order for DNR/DNI. Patient has been nauseated but no vomiting, Reglan started. No complaints of pain besides abdomen discomfort. Up with 1 assist and gait belt. Family at bedside. Cooperative with cares. Plan for [facility] in the future. Follow up: Monitor VS, drips, and neuro.
--- NOTE | 2017-04-25 03:47 | NUR ---
Significant Event:Patient alert, unable to assess orientation due to inability to speak. Moves all extremeties. Will sometimes nod yes/no, but does not always seem to understand questions. Pupils equal and reactive. No s/s or indications of pain. Nausea this shift with zofran given x1. Also gave Ducolax suppository with no results. Right arm double lumen picc and PIV to right wrist. PICC infusing NS at 150ml/hr and Wilmar at 0.7mcg/kg/hr, titrate to keep SBP between 170-200. NIHSS 10. Follow up:Monitor for BM.
[2017-04-25 14:11] LABS: ANION GAP 11.8 (10.0-19.0); CALCIUM 7.7 mg/dL (8.5-10.5); CREATININE 1.4 mg/dL (0.5-1.1); MAGNESIUM 1.9 mg/dL (1.8-2.6); POTASSIUM 3.8 mMol/L (3.7-5.1)
--- NOTE | 2017-04-25 17:03 | NUR ---
Call this a.m. from Katy at [facility] and she says Dr. Alfonso will be back this w/e and will be able to follow patient. Updated family. Call from Merna at [facility] and she wants family to know they have a room for patient and it is a room where can stay in the room. Updated family. Their son is coming this w/e and and children will decide which option they want and will let me know on Friday morning their decision. Will follow.
--- NOTE | 2017-04-25 19:24 | NUR ---
Significant Event:Patient is alert. Nonverbal. NIH-SS 9. PERRLA. Follows modeled commands does not follow verbal commands. Nods head appropriately if understands what is being asked. Unable to hear from the right ear. Right sided weakness. Moves extremities spontaneously. Lungs clear. Wheezes present with exertion. Patient went into Atrial fibrillation this AM, oral Amiodarone ordered. Converted to SR at 1210. Hypertensive per MD order. All other VSS on room air. Bowel sounds hypoactive. KUB ordered this shift. Mg Citrate 150ml given this shift. Patient voids per the bathroom with 1 assist gaitbelt, hands on. Edema/redness noted to bilateral upper extremities. Bilateral calf pumps in place. No s/s of pain. Patients takes medications 1 at a time with pudding. Peripheral IV saline locked. PICC has NS infusing at 150ml/hr, neosynephrine gtt titrated to keep SBP 150-[address] Alejandre. Honey thickened liquid, mechanical soft diet. Upright 90 degrees for all meals. Follow up:Titrate gtt to keep sbp 150-170, Carlos on Friday
--- NOTE | 2017-04-26 03:23 | NUR ---
Significant Event: Patient alert unable to assess orientation due to pt being mute. R) sided facial droop. Moves all extremites spontaniously able to follow commands if she understands what you want will model commands. R) lower leg drift. NIHSS 10. Up 1 assist GB hands on. Stopped Wilmar gtt at 2000 goal to keep SBP 150-170. On tele SR. On 2L of O2 at HS lungs clear but pt has increased respirations with activity. Honey thick liquids and michanical soft diet. Takes pills one at a time in pudding or applesauce. R) arm swollen due to infiltration. IV to R) forearm. Double lummen PICC to R) arm. Running fluids at 100ml/hr. Follow up: NEED UA! Possible D/C Friday to
[2017-04-26 04:54] LABS: BLOOD URINE 250 /UL (NEGATIVE); COLOR URINE BROWN (YELLOW); GLUCOSE URINE NEGATIVE (NEGATIVE); KETONE URINE 5 mg/dL (NEGATIVE); LEUKOCYTES URINE 100 /UL (NEGATIVE); NITRITE URINE POSITIVE (NEGATIVE); PROTEIN URINE 500 mg/dL (NEGATIVE); TURBIDITY URINE 1+ (CLEAR); UROBILINOGEN URINE 1 mg/dL (NORMAL)
[2017-04-26 05:05] LABS: HYALINE CAST URINE 0-2 #/LPF (NEGATIVE)
[2017-04-26 05:06] LABS: AMORPHOUS URINE 1+ (NEGATIVE); BACTERIA URINE RARE (NEGATIVE); RBC URINE 20-50 #/HPF (NEGATIVE)
[2017-04-26 05:18] LABS: ALBUMIN 2.7 gm/dL (3.5-5.0); ANION GAP 10.6 (10.0-19.0); CREATININE 1.7 mg/dL (0.5-1.1); MAGNESIUM 2.2 mg/dL (1.8-2.6); POTASSIUM 3.6 mMol/L (3.7-5.1)
[2017-04-26 05:19] LABS: PHOSPHORUS 1.8 mg/dL (2.5-4.9)
[2017-04-26 05:23] LABS: HEMATOCRIT 33.5 % (33.0-46.0); HEMOGLOBIN 11.5 g/dL (10.0-15.0); IMMATURE GRANULOCYTE # 0.1 K/uL (0.0-0.3); IMMATURE GRANULOCYTE % 0.6 %; LYMPHOCYTE # 1.3 K/uL (0.8-4.0); LYMPHOCYTE % 5.7 %; MCH 29.2 pg (27.0-34.0); MCHC 34.3 gm/dL (32.0-36.5); MONOCYTE # 1.3 K/uL (0.0-1.0); MPV 12.2 fl (9.4-12.4); NEUTROPHIL # (ANC) 19.1 K/uL (1.8-7.8); NEUTROPHIL % 87.7 %; NRBC % 0 /100WBC (0-0.00); PLATELET COUNT 116 K/uL (150-450); RBC 3.94 M/uL (3.50-5.50); RDW-CV 13.4 % (11.9-14.6); WBC 21.8 K/uL (4.0-11.0)
--- NOTE | 2017-04-26 17:13 | NUR ---
ALERT. MUTE. DOES NOT NOD APPROPRIATELY NOD HEAD TO YES NO MATTER WHAT YOU ASK. UNABLE TO AQUIRE MOST OF ASSESSMENT. 1PA GB. SBP 120'S-140'S. HR 80'S-150'S. RA. FEBRILE HIGH OF 100.8 TYLENOL GIVEN. STARTED CARDIZEM GTT TODAY INCREASE PO AMIO. NO S/S OF PAIN/ LS DIM. VD PER BR DECREASED OUTPUT. NO BM TODAY. MD CALLED CT ABD PELVIS DONE WITH PENDING RESULTS. PERRLA 2/BRISK. DOES NOT FOLLW COMMAND FOLLOWS SOME THING WITH DEMONSTRATION. FAMILY AT BEDSIDE. PLAN IS [facility] WHEN STABLE.
[2017-04-26 21:40] LABS: BILIRUBIN URINE NEGATIVE (NEGATIVE); BLOOD URINE 250 /UL (NEGATIVE); COLOR URINE YELLOW (YELLOW); GLUCOSE URINE NEGATIVE (NEGATIVE); KETONE URINE NEGATIVE (NEGATIVE); LEUKOCYTES URINE 25 /UL (NEGATIVE); NITRITE URINE NEGATIVE (NEGATIVE); PROTEIN URINE 100 mg/dL (NEGATIVE); TURBIDITY URINE 3+ (CLEAR); UROBILINOGEN URINE NORMAL (NORMAL)
[2017-04-26 22:05] LABS: AMORPHOUS URINE 3+ (NEGATIVE); BACTERIA URINE NEGATIVE (NEGATIVE)
--- NOTE | 2017-04-27 02:59 | NUR ---
Significant Event: Patient is alert unable to tell orientation due to fact she is mute. Moves all extremities spontaneously and follows diminstrations. Nods head yes and no but does not make since always to what you are asking. Pt is very hard of hearing. R) side facial droop. Some R) sided neglect. R) lower leg drift. NIHSS 11. On cardizem drip goal is to keep SBP >110 and HR <120. On zosyn. On D5NS at 100ml/hr. Double Lumen PICC to R) arm flushes well with good blood return. On RA during the day 2L at HS. SOB with activity. Abdomin distended and firm pt needs to have a BM. Honey thick liquids with machanical soft diet. Barnes Lasix given good urine output. Follow up: Monitor for BM. Renal U/S this am. Chest x-ray this am.
[2017-04-27 04:56] LABS: BILIRUBIN URINE NEGATIVE (NEGATIVE); BLOOD URINE 250 /UL (NEGATIVE); COLOR URINE YELLOW (YELLOW); GLUCOSE URINE NEGATIVE (NEGATIVE); KETONE URINE NEGATIVE (NEGATIVE); LEUKOCYTES URINE NEGATIVE /UL (NEGATIVE); NITRITE URINE NEGATIVE (NEGATIVE); PROTEIN URINE 30 mg/dL (NEGATIVE); SPEC GRAVITY URINE 1.015 (1.003-1.035); TURBIDITY URINE CLEAR (CLEAR); UROBILINOGEN URINE NORMAL (NORMAL)
[2017-04-27 05:04] LABS: WBC URINE 0-2 #/HPF (NEGATIVE)
[2017-04-27 05:05] LABS: BACTERIA URINE RARE (NEGATIVE); EPITHELIAL URINE 0-2 #/HPF (NEGATIVE)
[2017-04-27 05:14] LABS: ALBUMIN 2.2 gm/dL (3.5-5.0); ANION GAP 10.5 (10.0-19.0); CALCIUM 7.7 mg/dL (8.5-10.5); CREATININE 1.8 mg/dL (0.5-1.1); POTASSIUM 3.5 mMol/L (3.7-5.1)
--- NOTE | 2017-04-27 16:15 | NUR ---
Significant Event: Patient alert to voice. Tracks with eyes. Nods semi-appropriately. Aphasic. Follows some return demonstration commands. Moves all extremities spontaneously. HYDABURG. NIHSS 11. VSS. Converted to sinus rhythm at 1109. Cardizem drip delayed at 1100 related to SBP<110. Cardizem drip then D/Cd completely when patient converted back to SR. Afebrile. HRs currently in the 60s. Room air with sats in the low 90s. LS clear and diminsihed. SOB and wheezy with activity. Renal ultrasound this shift. Passing gas. XXL loose incontinent BM. Barnes in place draining yellow urine. Mechanical soft diet with honey thick liquids. Pills whole 1 at a time with pudding. 1+ generalized edema. PICC to [place] . SLL except intermittent ABX. PIV R) wrist. SLL. 1 assist with gaitbelt. Denies pain. Family at bedside. [place] and cooperative with cares. Follow up: monitor UOP and heart rhythm
--- NOTE | 2017-04-28 02:44 | NUR ---
Significant Event: Alert unable to assess orientation since pt is mute. Has R) facial droop. Moves all extremities spontaneously and to commands. Nods yes but not always appropriately. PERRLA. Models commands. [place]. NIHSS 11. On tele SR. No temp. On 2L of O2 while pt sleeps. Last BM 04/27/17. Honey thick liquids with mechanical soft diet. PICC line to R) upper arm double lumen SL. On zosyn. Barnes moderate output. Strict I&O and daily weight. Takes Pills 1 at a time in applesauce. Up 1 assist GBW. Follow up: Noemí tomorrow
[2017-04-28 05:40] LABS: BASOPHIL % 0.2 %; EOSINOPHIL % 0.1 %; HEMATOCRIT 30.4 % (33.0-46.0); HEMOGLOBIN 10.2 g/dL (10.0-15.0); IMMATURE GRANULOCYTE # 0.1 K/uL (0.0-0.3); IMMATURE GRANULOCYTE % 0.6 %; LYMPHOCYTE # 1.3 K/uL (0.8-4.0); LYMPHOCYTE % 7.3 %; MCH 28.7 pg (27.0-34.0); MCHC 33.6 gm/dL (32.0-36.5); MCV 85.4 fl (83.0-98.0); MONOCYTE # 0.8 K/uL (0.0-1.0); MONOCYTE % 4.2 %; NEUTROPHIL % 87.6 %; NRBC % 0 /100WBC (0-0.00); PLATELET COUNT 116 K/uL (150-450); RBC 3.56 M/uL (3.50-5.50); RDW-CV 13.9 % (11.9-14.6)
[2017-04-28 05:42] LABS: WBC 18.3 K/uL (4.0-11.0)
[2017-04-28 05:58] LABS: ALBUMIN 2.1 gm/dL (3.5-5.0); ANION GAP 10.8 (10.0-19.0); CALCIUM 7.9 mg/dL (8.5-10.5); CREATININE 2.1 mg/dL (0.5-1.1); MAGNESIUM 2.2 mg/dL (1.8-2.6); PHOSPHORUS 2.1 mg/dL (2.5-4.9); POTASSIUM 3.8 mMol/L (3.7-5.1)
--- NOTE | 2017-04-28 08:19 | NUR ---
A - NUTRITION F/U. PT NON-VERBAL. GLU 108, BUN/RESIDENTIAL SPECIALIST 32/2.1, ALB 2.1, WBC 18.3. PT W/ 1-2+ EDEMA T/O. DIET: MECH SOFT HONEY THICK W/ CIB TID AND MAGIC CUP BID. INTAKE BITES TO 50%. POSSIBLE DISCHARGE TO [facility] SOON. D - AT RISK W/ INADEQUATE ORAL INTAKE R/T DECREASED APPETITE AEB INTAKE RECORD. I - GOAL: 50% OR BETTER INTAKE BY DISMISSAL. M/E - WILL F/U IN 2-3 DAYS; IF PT STILL HERE AND INTAKE NOT IMPROVED MAY REC EN.
--- NOTE | 2017-04-28 10:00 | NUR ---
ZEHRA from Merna at [facility] wondering what family decided and if ready today. Says she will need update this a.m. before final decision. Faxed update to Merna at [facility]. Talked to charge nurse and she says nephrology says not ready today. Talked to patient's and DIL. They have made a decision as a family that patient will go to [facility] in [place] for inpt rehab when ready for transfer. They say told them not today, but maybe Fri. Answered their questions. Talked to them about transportation and medicare coverage for ambulance decided after the fact. They will talk about transportation as they are not sure they are comfortable transporting her. Talked to Merna at [facility] and updated her on choice of their facility and not ready today. Says to touchbase with her on Fri. Will follow.
--- NOTE | 2017-04-28 17:09 | NUR ---
Significant Event: Alert/non-verbal. 1 assist/gait belt, ambulates in [place], up in chair all shift, [place], follows some commands, nods @ times not always appropriately. NIHSS= 11, R)mouth droop, RLE drift, R)sided weakness, moves all extremities, poor appetite, ICE CHIPS allowed per Fraizer Protocol. [facility]. soft diet, Honey thick liquids, family @ bedside to assist with cares, R)PICC patent, R)wrist saline lock, BM today, za for strict I&O, flipped into AFIB at 1530 - notified, converts to SR @ 9980. BUE edema/ecchymotic. Follow up: standing daily weight - strict I&O Nurse draw a.m. labs & UA Plan for [facility] when kidney function improves
[2017-04-29 06:15] LABS: ALBUMIN 3.5 gm/dL (3.5-5.0); ANION GAP 12.2 (10.0-19.0); CALCIUM 8.4 mg/dL (8.5-10.5); CREATININE 2.1 mg/dL (0.5-1.1); MAGNESIUM 2.3 mg/dL (1.8-2.6); PHOSPHORUS 2.2 mg/dL (2.5-4.9); POTASSIUM 3.2 mMol/L (3.7-5.1)
[2017-04-29 06:18] LABS: BASOPHIL % 0.2 %; EOSINOPHIL # 0.1 K/uL (0.0-0.5); EOSINOPHIL % 0.7 %; HEMATOCRIT 27.1 % (33.0-46.0); HEMOGLOBIN 9.2 g/dL (10.0-15.0); IMMATURE GRANULOCYTE % 0.4 %; LYMPHOCYTE # 1.3 K/uL (0.8-4.0); MCH 29.1 pg (27.0-34.0); MCHC 33.9 gm/dL (32.0-36.5); MCV 85.8 fl (83.0-98.0); MONOCYTE # 0.7 K/uL (0.0-1.0); MONOCYTE % 6.1 %; MPV 12.5 fl (9.4-12.4); NEUTROPHIL # (ANC) 8.7 K/uL (1.8-7.8); NEUTROPHIL % 80.6 %; NRBC % 0 /100WBC (0-0.00); PLATELET COUNT 110 K/uL (150-450); RBC 3.16 M/uL (3.50-5.50); RDW-CV 13.8 % (11.9-14.6); WBC 10.8 K/uL (4.0-11.0)
--- NOTE | 2017-04-29 07:05 | NUR ---
Significant Event: The patient is Alert and Oriented x1. Can write her name, and knows it is 2016, but she is unsure of the month, and place. She also wrote her age correctly. NIHSS 10. VSS. Placed on 2L oxygen around 0355 due to fine crackles in her lungs. Edema noted to her arms and legs. Order for IV Lasix and KCL given at 0526. Barnes draining yellow urine. PICC line to the Right arm saline locked. Flipped in and out of A-FIB- on PO Amiodarone. Denies pain. Takes pills whole, one at a time with pudding. Mechanical soft diet with honey thick liquids. [place] Water Protocol. Poor appetite. Up with SBA and gaitbelt. Follow up:
--- NOTE | 2017-04-29 16:31 | NUR ---
Significant Event: A/O X2, [place] - MUTE, family @ bedside. follows commands, cooperative, nods head in response, able to write answers to questions, NIHSS= 10, R)mouth droop, RLE drift, R)side weakness, in & out of AFIB today - Dr. Burt aware, edema to extremities, abdomen distended/slight firm, dulcolax supp given this morning, XXL loose BM, decreased appetite, Mech soft diet/honey thick liquids, mendenhall removed - STRICT I&O, incontinent large amt. urine after mendenhall removed, R)PICC saline lock, changed to PO antibiotics, lungs dim BLL, sat 93% on RA when awake, Follow up: standing daily weight plan for [facility] rehab when kidney function improves EKG & CXRAY in a.m. Nurse draw labs in a.m.
--- NOTE | 2017-04-30 02:35 | NUR ---
Significant Event: Pt is Alert. Able to write name and birthdate on paper. Pt is Mute. Able to track conversation and obey commands. Does not nodd yes or no appropriately. Up SBA. On tele SR. VSS. RA during the day placed on 1L while pt slept. Strict daily weight and I&O. Lg loose BM 04/29. Michanical soft diet with honey thick liquids. PICC to R) arm double lumen SL. Red flushes well without complications. Purple sluggish. NIHSS 10. Follow up:
[2017-04-30 04:25] LABS: BASOPHIL % 0.3 %; EOSINOPHIL # 0.2 K/uL (0.0-0.5); EOSINOPHIL % 1.3 %; HEMATOCRIT 29.5 % (33.0-46.0); HEMOGLOBIN 9.8 g/dL (10.0-15.0); IMMATURE GRANULOCYTE # 0.1 K/uL (0.0-0.3); IMMATURE GRANULOCYTE % 0.4 %; LYMPHOCYTE # 1.5 K/uL (0.8-4.0); LYMPHOCYTE % 13.1 %; MCH 28.4 pg (27.0-34.0); MCHC 33.2 gm/dL (32.0-36.5); MCV 85.5 fl (83.0-98.0); MONOCYTE # 0.8 K/uL (0.0-1.0); MONOCYTE % 6.6 %; MPV 12.3 fl (9.4-12.4); NEUTROPHIL # (ANC) 9.1 K/uL (1.8-7.8); NEUTROPHIL % 78.3 %; NRBC % 0 /100WBC (0-0.00); RBC 3.45 M/uL (3.50-5.50); WBC 11.6 K/uL (4.0-11.0)
[2017-04-30 04:28] LABS: PLATELET COUNT 135 K/uL (150-450)
[2017-04-30 04:41] LABS: ALBUMIN 3.1 gm/dL (3.5-5.0); ANION GAP 9.4 (10.0-19.0); CALCIUM 8.6 mg/dL (8.5-10.5); CREATININE 2.2 mg/dL (0.5-1.1); MAGNESIUM 2.2 mg/dL (1.8-2.6); PHOSPHORUS 2.6 mg/dL (2.5-4.9); POTASSIUM 3.4 mMol/L (3.7-5.1)
--- NOTE | 2017-04-30 08:40 | NUR ---
A - NUTRITION F/U. PT ALERT, NON-VERBAL. K+ 3.4, GLU 96, BUN/TEA AND SPICE SUPERVISOR 32/2.2, ALB 3.1, WBC 11.6. PT W/ 1-2+ BUE AND 1-3+ BLE EDEMA. DIET: MECH SOFT HONEY LIQUIDS W/ MAGIC CUP BID AND CIB TID. INTAKE 25%. EST NEEDS: 4401-6393 KCALS, 50-60 GM PROTEIN, 1 ML/KCAL FLUIDS. D - AT RISK W/ INADEQUATE ORAL INTAKE R/T DECREASED APPETITE AND DIFFICULTY SWALLOWING AEB INTAKE RECORD. I - GOAL: 50% INTAKE BY NEXT REVIEW. M/E - ORAL INTAKE INADEQUATE TO MAINTAIN WT. CONSIDER EN W/ OSMOLITE 1.5 TO RUN AT GOAL RATE OF 40 ML/HR = 1440 KCALS, 60 GM PROTEIN, 732 ML FREE H20. WILL F/U IN 2-3 DAYS.
--- NOTE | 2017-04-30 14:00 | NUR ---
Spoke with Maryjane AMES this a.m. Spoke with Merna at [facility] this a.m. and updated her. Spoke with Dr. Murdock and he says ready tomorrow or Friday depending on her labs. Talked with and ABHINAV and updated them on what I knew. ABHINAV says they talked about transporation and are not comfortable transporting her. Told them that is fine I just can't guarantee Medicare ella cover the ambulance. ABHINAV says daughter Merna has made some contacts and [facility] has said they will transport patient to [facility]. She calls Merna and Merna gives me contact names and numbers for [facility]. Will follow
--- NOTE | 2017-04-30 19:40 | NUR ---
Significant Event: NIHSS=10. no changes from previous shift. nonverbal. is delayed but answers yes/no by nodding mostly appriately. follows commands. SBA. Gait steady. PICC to righ upper arm with NS infusing at 50ml/hr for 500ml. Albumin x 6 doses orders, 1 Q 4 hours. 2 doses administered thus far. mechanical soft diet with honey thick liquids. takes meds whole in applesauce. continue with strict I & O. may have thin water per lucero protocol. needs encouragement for PO intake.
[2017-05-01 03:56] LABS: ANION GAP 12.6 (10.0-19.0); CALCIUM 8.5 mg/dL (8.5-10.5); CREATININE 1.9 mg/dL (0.5-1.1); PHOSPHORUS 2.2 mg/dL (2.5-4.9); POTASSIUM 3.6 mMol/L (3.7-5.1)
[2017-05-01 03:59] LABS: BASOPHIL % 0.4 %; EOSINOPHIL # 0.4 K/uL (0.0-0.5); EOSINOPHIL % 5.3 %; HEMATOCRIT 26.3 % (33.0-46.0); HEMOGLOBIN 8.6 g/dL (10.0-15.0); IMMATURE GRANULOCYTE % 0.5 %; LYMPHOCYTE # 0.9 K/uL (0.8-4.0); LYMPHOCYTE % 11.1 %; MCH 28.4 pg (27.0-34.0); MCHC 32.7 gm/dL (32.0-36.5); MCV 86.8 fl (83.0-98.0); MONOCYTE # 0.6 K/uL (0.0-1.0); MONOCYTE % 6.8 %; MPV 12.5 fl (9.4-12.4); NEUTROPHIL # (ANC) 6.1 K/uL (1.8-7.8); NEUTROPHIL % 75.9 %; NRBC % 0 /100WBC (0-0.00); PLATELET COUNT 123 K/uL (150-450); RBC 3.03 M/uL (3.50-5.50); RDW-CV 14.1 % (11.9-14.6); WBC 8.1 K/uL (4.0-11.0)
--- NOTE | 2017-05-01 05:15 | NUR ---
Significant Event: The patient is Alert to person and time, does not know place. She is non-verbal but is able to write and understand. Moves all extremities spontaneously and to command. Up with SBA, Gaitbelt. Denies Pain. VSS. NIHSS 9. Placed on 2L oxygen per NC, lungs have crackles and she is Short of Breath. She received 5 doses of Albumin and 500ML of NS this shift, Dr. Carroll notified of Oxygen need, SOB, and Lung sounds, he seen the patient and assessed her- he than wrote for a chest xray, D'C 6th dose of albumin, 10 mEq of KCL, and 20mg of IV Lasix. 2+ Edema in all extremities. Bruising to arms. PICC Line to the right arm. Mechanical soft diet, honey thick liquids. Takes the pills whole in pudding. Right extremities are slightly weaker than the left. Follow up: Monitor Kidney function
--- NOTE | 2017-05-01 13:37 | NUR ---
Significant Event: Patient remains nonverbal, nods yes and no. Able to write name and birthday. Unable to write where she is. Follows commands. Denies numbness/tingling when asked. Pupils 3mm, brisk. Very slightly weaker in right side, but overall moderate strength. Lungs clear and dim, few crackles at times. Currently on room air. Denies pain so far this shift. Picc to right arm, saline locked. Soft diet with honey liquids, takes pills well with applesauce. PICC to right arm saline locked. Alarms on for safety. Awaiting discharge to [facility] whenever both sides are ready. Follow up: Neuro status. NIHSS. Nurse draw
--- NOTE | 2017-05-01 17:10 | NUR ---
Talked to ABHINAV and pt's nurse this afternoon. They are uncertain when patient will be ready for [facility], but think it will be soon. Update faxed to Merna at [facility] and ZEHRA left. Will follow.
[2017-05-02 04:06] LABS: BASOPHIL # 0.1 K/uL (0.0-0.2); BASOPHIL % 0.5 %; EOSINOPHIL # 0.8 K/uL (0.0-0.5); EOSINOPHIL % 6.4 %; HEMATOCRIT 29.9 % (33.0-46.0); HEMOGLOBIN 9.9 g/dL (10.0-15.0); IMMATURE GRANULOCYTE # 0.1 K/uL (0.0-0.3); LYMPHOCYTE # 1.5 K/uL (0.8-4.0); LYMPHOCYTE % 11.8 %; MCH 28.6 pg (27.0-34.0); MCHC 33.1 gm/dL (32.0-36.5); MCV 86.4 fl (83.0-98.0); MONOCYTE # 0.8 K/uL (0.0-1.0); MONOCYTE % 6.3 %; MPV 12.5 fl (9.4-12.4); NEUTROPHIL # (ANC) 9.6 K/uL (1.8-7.8); NRBC % 0 /100WBC (0-0.00); PLATELET COUNT 184 K/uL (150-450); RBC 3.46 M/uL (3.50-5.50); WBC 12.9 K/uL (4.0-11.0)
--- NOTE | 2017-05-02 04:30 | NUR ---
Significant Event: PT A&O TO PERSON, MOVES ALL EXTREMITIES, AND FOLLOWS ALL COMMANDS. NIHSS 7. PUPILS ARE EQUAL, ROUND 3MM, BRISKLY REACTIVE TO LIGHT, AND ACCOMODATING. PT CONVERTED FROM NORMAL SINUS RHYTHM TO AFIB AT 0113, BUT HAS BEEN IN AND OUT OF AFIB SINCE ADMISSION. PROVIDERS ARE AWARE. NO EDEMA PRESENT LUNGS ARE COARSE IN UPPER BILATERAL LOBES AND PT WAS STARTED ON 1L 02 VIA NASAL CANULA AT 2200 DUE TO OXYGEN SATURATION FALLING BELOW 90%. TWO BMs WERE OBSERVED. PT MAINTAINS A REGULAR DIET WITH NECTAR LIQUIDS. ORAL MEDICATIONS ARE TAKEN WITH APPLESAUCE AND TOLERATED WELL BY THE PT. PT HAS A DUAL LUMEN PICC LINE IN THE RIGHT ARM THAT IS CLEAN, DRY, INTACT, AND SALINE LOCKED. BED ALARM IS ACTIVE AND CALL LIGHT WITHIN REACH. DAUGHTER HAS BEEN PRESENT AT BEDSIDE THROUGHOUT THE NIGHT. Follow up: NEURO STATUS. NIHSS. POSSIBLE DISCHARGE TO [facility] TODAY.
[2017-05-02 10:35] LABS: ALBUMIN 3.8 gm/dL (3.5-5.0); ANION GAP 12.7 (10.0-19.0); CREATININE 1.9 mg/dL (0.5-1.1); PHOSPHORUS 2.5 mg/dL (2.5-4.9); POTASSIUM 3.7 mMol/L (3.7-5.1)
--- NOTE | 2017-05-02 11:23 | NUR ---
A - NUTRITION FOLLOW-UP NON-VERBAL, NODS YES/NO, ABLE TO WRITE. PER RECORD, NO WEIGHT LOSS NOTED. 2+ EDEMA ALL EXTREMITIES PER SHIFT REPORT. POSSIBLE D/C TO [facility] TODAY. LABS: K+ 3.6, GLU 104, BUN 32, CREA 1.9, PO4 2.2 MEDS: ZOCOR, LEVAQUIN. ON REGLAN. LASIX D/C'D 05/01. DIET: REGULAR/NECTAR THICK W/ MAGIC CUP BID. INTAKE 23% X10 MEALS. RN CALLED YESTERDAY, PT DISLIKES NECTAR THICK CIB, REQUESTED HEALTH SHAKE BUT NOT NECTAR THICK LIQUID. WILL TRIAL ENSURE PUDDING INSTEAD. EST NEEDS: 5641-5699 KCAL, 50-60 GRAMS PROTEIN, FLUID NEEDS: 1ML/KCAL D - INADEQUATE ORAL INTAKE RELATED TO DECREASED APPETITE EVIDENCED BY PO 23% X10 MEALS. I - 1) MAGIC CUP BID; WILL TRIAL ENSURE PUDDING BID. 2) IF APPETITE DOES NOT IMPROVE, RECOMMEND EN W/ OSMOLITE 1.5 AT 40ML/HR. M/E - GOAL: PT WILL BE ABLE TO TOLERATE >50% OF MEALS AND AT LEAST TWO ORAL SUPPLEMENT PER DAY IN 3-5 DAYS.
--- NOTE | 2017-05-02 11:30 | NUR ---
Talked to Yareli at [facility] several times and they will have a bed for today. Talked to patient's daughter several times. They have decided they are comfortable with transporting patient. Talked to Dr. Murdock and patient can transfer today. Orders faxed to [facility] rehab. Nurse will call nurse to nurse report. Explained to daughter which entrance they are to go to and to go in and have staff get a w/c and help patient out of vehicle. Patient to transfer via private vehicle to [facility] inpatient rehab today.
== END 2017-05-02 12:10 | DRG 64 ==
LOC: GICU 15:19
PROVIDERS: Internal Medicine; Nurse Practitioner; Nurse Practitioner Acute Care; Nurse Practitioner Family; ADMIT Specialist
PROC: 02HV33Z Insertion of Infusion Device into Superior Vena Cava, Percutaneous Approach (ICD-10-PCS; principal; 2017-04-24)
DX: I63.9 Cerebral infarction, unspecified (principal); A41.9 Sepsis, unspecified organism; N17.9 Acute kidney failure, unspecified; G81.91 Hemiplegia, unspecified affecting right dominant side; I48.0 Paroxysmal atrial fibrillation; I13.0 Hypertensive heart and chronic kidney disease with heart failure and stage 1 through stage 4 chronic kidney disease, or unspecified chronic kidney disease; I50.9 Heart failure, unspecified; I27.2 Other secondary pulmonary hypertension; R47.01 Aphasia; N39.0 Urinary tract infection, site not specified; R29.810 Facial weakness; E87.6 Hypokalemia; N18.9 Chronic kidney disease, unspecified; E78.5 Hyperlipidemia, unspecified; M81.0 Age-related osteoporosis without current pathological fracture; E03.9 Hypothyroidism, unspecified; K59.00 Constipation, unspecified; E55.9 Vitamin D deficiency, unspecified; R48.2 Apraxia; Z92.82 Status post administration of tPA (rtPA) in a different facility within the last 24 hours prior to admission to current facility
CPT/HCPCS: A9577; C1751; J1940; J2370; J2405; J2543; J2765; J7030; J7040; J7050; P9047